=== PATIENT | female | born 1985 | race Caucasian/White ===

== ENCOUNTER 2021-06-22 11:12 | Emergency (ER) | payer BC, SELFPAY ==
--- NOTE | ~2021-06-22 | XR_ITS ---
XR ankle RT min 3V DATE: 06/22/2021 11:34 INDICATION: Volleyball injury last night; lateral pain. History of fracture. TECHNIQUE: 4 views COMPARISON: None FINDINGS: There is a small linear fracture through the lateral aspect of the lateral malleolus, with no significant displacement regulation. There is prominent overlying soft tissue swelling. There is a prominent os subfibular a old ununited fracture at the tip of the lateral malleolus. The medial malleolus and posterior malleolus are intact. Ankle mortise is maintained. Slight plantar calcaneal enthesopathy. IMPRESSION: Small linear fracture at the lateral aspect of the lateral malleolus with prominent overl kang soft tissue swelling Reviewed, dictated and finalized at location B. CLERK IMPRESSION: Small linear fracture at the lateral aspect of the lateral malleolu s with prominent overlying soft tissue swelling
[2021-06-22 11:26] VITALS: BP 109/63; PULSE 88; RESP 18; TEMP 36.6; O2SAT 99
[2021-06-22 11:34] VITALS: BP 109/63; PULSE 88; RESP 18; TEMP 36.6; O2SAT 99
--- NOTE | 2021-06-22 11:55 | ED.LOWEXIN ---
HPI - Extremity Injury (Lower) General Chief Complaint: Extremity Injury, Lower Stated Complaint: Rt Ankle Pain Source: patient and RN notes reviewed Mode of arrival: ambulatory History of Present Illness HPI Narrative: This is a 35-year-old female that presented to urgent care with right ankle pain and swelling. According to patient yesterday she was playing volleyball when her right ankle twisted and she heard a pop afterwards she experienced swelling and pain with weightbearing. Patient did R.I.C.E the site while at home with little improvement. Imaging today does indicate right ankle fracture. Related Data Home Medications Medication Instructions Recorded Confirmed lamotrigine 200 mg PO DAILY 06/22/21 06/22/21 levothyroxine 100 mcg PO DAILY 06/22/21 06/22/21 venlafaxine 150 mg PO BID 06/22/21 06/22/21 Allergies Allergy/AdvReac Type Severity Reaction Status Date / Time No Known Allergies Allergy Unverified 09/16/18 11:48 Review of Systems Review of Systems: A 14 organ system Review of Systems was performed and pertinent positives included in the HPI, otherwise remaining ROS is negative. Exam Narrative: GENERAL: This is a well-nourished, well-developed patient, in no apparent distress. HEAD: normocephalic, atraumatic. EYES: PERRL. Sclera clear/white. Vision is grossly intact. EARS: External ears normal, auditory canals clear and without drainage, TMs normal without perforation. Hearing grossly intact. NOSE: External nose normal with no obvious nasal discharge, nares without redness, no rhinorrhea. THROAT: Mucous membranes moist, posterior pharynx clear. NECK: Neck supple, non-tender without lymphadenopathy, masses or thyromegaly. CARDIOVASCULAR: Regular rate and rhythm without murmurs, gallops, or rubs. RESPIRATORY: Clear to auscultation. Breath sounds equal bilaterally. No wheezes, rales, or rhonchi. GASTROINTESTINAL: Abdomen soft, non-tender, nondistended. Bowel sounds are active. No hepato-splenomegaly, or palpable masses. No guarding. SKIN: warm, intact with no suspicious lesions or rash, good texture and turgor. NEURO: awake, alert, and oriented to person, place and time. There were no obvious focal neurologic abnormalities. Steady gait EXTREMITIES: Limited range of motion to the right ankle . 2+ edema. No calf tenderness. Negative Homans sign bilaterally. Pulses are palpable, capillary refill within normal limits sensation positive any affected extremity BACK: Nontender without deformity or crepitance. No flank tenderness. Course Course Emergency Course: Stirrup splint will be placed to the affected extremity and patient will discharge home with ibuprofen and instructed to follow-up with Ortho Level of Care: Express Care Visit Vital Signs Vital signs: Vital Signs Temperature 97.9 F 06/22/21 11:26 Pulse Rate 88 06/22/21 11:26 Respiratory Rate 18 06/22/21 11:26 Blood Pressure 109/63 06/22/21 11:26 Pulse Oximetry 99 06/22/21 11:26 Temperature 97.9 F 06/22/21 11:34 Pulse Rate 88 06/22/21 11:34 Respiratory Rate 18 06/22/21 11:34 Blood Pressure 109/63 06/22/21 11:34 Pulse Oximetry 99 06/22/21 11:34 Procedures Orthopedic Splinting/Casting Right ankle: Splinting/Casting Date: 06/22/21 Splinting/Casting Time: 12:00 Side: right Lower Extremity Injury Location: ankle Lower Extremity Immobilizer: stirrup splint Splint: prefabricated Pre-Procedure Neuro Vascular Exam: normal Post-Procedure Neuro Vascular Exam: normal MDM - Extremity Injury (Lower) Differential Diagnosis Differential diagnosis: Likely ankle sprain and strain and ankle fracture Imaging Data Attestation: I personally reviewed and interpreted this imaging study as follows: My impression: Right ankle fracture Radiologist's impression: Small linear fracture at the lateral aspect of the lateral malleolus with prominent overlying soft tissue swelling Discharge Plan
== END 2021-06-22 12:05 | disposition home or self-care (01) ==
PROVIDERS: Emergency Provider Nurse Practitioner
DX: S82.61XA Displaced fracture of lateral malleolus of right fibula, initial encounter for closed fracture (principal); X50.9XXA Other and unspecified overexertion or strenuous movements or postures, initial encounter; Y93.68 Activity, volleyball (beach) (court)
CPT/HCPCS: 29515; 73610; 99214; G0463

== ENCOUNTER 2022-07-15 13:10 | Emergency (ER) | payer BC, SELFPAY ==
--- NOTE | 2022-07-15 13:15 | ED.GENADULT ---
HPI - General Adult General Chief complaint: Upper Respiratory Infection Stated complaint: runny nose Time Seen by Provider: 07/15/22 13:15 Source: patient Mode of arrival: ambulatory Limitations: no limitations History of Present Illness HPI narrative: 36-year-old female patient presents to the [facility] with complaints of a runny nose and fatigue. Patient states she cared for her [id number] last week who did end up becoming up positive for strep. Patient denies any fevers body aches or chills. Patient states she has had some fatigue. Sunday she did have a scratchy throat that has since resolved. Denies any nausea, vomiting or diarrhea. Any abdominal pain or headaches. Related Data Home Medications Medication Instructions Recorded Confirmed lamotrigine 200 mg tablet 200 mg PO DAILY 06/22/21 07/25/21 levothyroxine 100 mcg tablet 100 mcg PO DAILY 06/22/21 07/25/21 venlafaxine 150 mg 150 mg PO BID 06/22/21 07/25/21 capsule,extended release 24 hr Allergies Allergy/AdvReac Type Severity Reaction Status Date / Time No Known Allergies Allergy Verified 07/15/22 13:30 Review of Systems Review of Systems: CONSTITUTIONAL: Denies fever, chills, or sweats. positive fatigue EYES: Denies visual changes, redness, or discharge. ENT: Positive rhinorrhea, congestion, sore throat, or otalgia. CARDIOVASCULAR: Denies chest pain, palpitations, or edema. RESPIRATORY: Denies cough or dyspnea. GASTROINTESTINAL: Denies abdominal pain, nausea, vomiting, or diarrhea. GENITOURINARY: Denies dysuria or hematuria. SKIN: Denies rash or itching. MUSCULOSKELETAL: Denies back pain, joint pain, or myalgia. NEUROLOGIC: Denies headache, numbness, or weakness. PSYCHIATRIC: Denies anxiety or depression. PMFSH Past Medical History Medical History Bipolar 1 disorder Depression Social History Social History Smoking status: Never smoker Comments At the time of my signature I agree with nursing past medical history, surgical, social, and family history. There is no relevant family history pertinent to the presenting complaint. Exam Narrative: GENERAL: Well-appearing, well-nourished, and in no acute distress. HEAD: Normocephalic, atraumatic. EYES: PERRLA and EOMI. ENT: Nares erythema and edema noted bilaterally, no rhinorrhea or epistaxis. Mucous membranes moist. posterior pharynx with no erythema, tonsillar enlargement, exudates or lesions present. Bilateral TMs are clear no erythema or foreign bodies the canal NECK: Supple. No lymphadenopathy CHEST: Clear to auscultation. No respiratory distress. HEART: Regular rate and rhythm. No murmur heard. Normal peripheral pulses. ABDOMEN: Soft, nontender, nondistended, normal active bowel sounds. EXTREMITIES: Normal range of motion. No edema. SKIN: Warm, dry, no rash. NEURO: No focal deficits. Alert and oriented x3. Course Course Level of Care: Express Care Visit Vital Signs Vital signs: Vital Signs Temperature 36.4 C 07/15/22 13:38 Pulse Rate 89 07/15/22 13:38 Respiratory Rate 18 07/15/22 13:38 Blood Pressure 99/74 L 07/15/22 13:38 Pulse Oximetry 100 07/15/22 13:38 Oxygen Delivery Room Air 07/15/22 13:38 Temperature 36.4 C 07/15/22 13:38 Pulse Rate 89 07/15/22 13:38 Respiratory Rate 18 07/15/22 13:38 Blood Pressure 99/74 L 07/15/22 13:38 Pulse Oximetry 100 07/15/22 13:38 Oxygen Delivery Room Air 07/15/22 13:38 Vital signs reviewed Medical Decision Making MDM Narrative Medical decision making narrative: Patient is negative for strep today. Informed patient that she take taking [id number] medications as needed for symptoms. We will send her strep swab to lab for a culture if it does come back positive at that time we will call her antibiotics. Differential Diagnosis Differential Diagnosis: differential diagnosis: A
[2022-07-15 13:38] VITALS: BP 99/74; PULSE 89; RESP 18; TEMP 36.4; O2SAT 100
== END 2022-07-15 13:52 | disposition home or self-care (01) ==
PROVIDERS: Emergency Provider Nurse Practitioner Family
DX: J34.89 Other specified disorders of nose and nasal sinuses (principal); F31.9 Bipolar disorder, unspecified
CPT/HCPCS: 87081; 87880; 99213; G0463

== ENCOUNTER 2022-09-08 12:32 | Emergency (ER) | payer BC, SELFPAY ==
[2022-09-08 12:43] VITALS: BP 111/67; PULSE 87; RESP 18; TEMP 36.7; O2SAT 100
--- NOTE | 2022-09-08 13:15 | ED.URI ---
HPI - URI/Sore Throat General Chief Complaint: Upper Respiratory Infection Stated Complaint: Congestion,Cough Time Seen by Provider: 09/08/22 12:51 Source: patient and RN notes reviewed Mode of arrival: ambulatory Limitations: no limitations History of Present Illness HPI Narrative: Patient presents today complaining of 4 day history of congestion, sore throat, cough, postnasal drip, headache. Symptoms have improved since onset. Denies fever. She has been taking Excedrin for symptoms. She is currently pain-free. She has been baby-sitting her niece who was subsequently diagnosed with strep throat 1 week ago. Related Data Home Medications Medication Instructions Recorded Confirmed lamotrigine 200 mg tablet 200 mg PO DAILY 06/22/21 09/08/22 levothyroxine 100 mcg tablet 100 mcg PO DAILY 06/22/21 09/08/22 venlafaxine 150 mg 150 mg PO BID 06/22/21 09/08/22 capsule,extended release 24 hr Allergies Allergy/AdvReac Type Severity Reaction Status Date / Time No Known Allergies Allergy Verified 09/08/22 12:35 Review of Systems Review of Systems: CONSTITUTIONAL: Denies body aches, fever, chills, or sweats. EYES: Denies visual changes, redness, or discharge. ENT: Denies rhinorrhea, or otalgia.+ sore throat, congestion, postnasal drip CARDIOVASCULAR: Denies chest pain, palpitations, or edema. RESPIRATORY: Denies dyspnea.+ cough GASTROINTESTINAL: Denies abdominal pain, nausea, vomiting, or diarrhea. GENITOURINARY: Denies dysuria or hematuria. SKIN: Denies rash, itching, or wounds. MUSCULOSKELETAL: Denies back pain, joint pain, or myalgia. NEUROLOGIC: Denies numbness, tingling, or weakness.+ headache PSYCH: Denies depression or anxiety. [facility] Past Medical History Medical History Bipolar 1 disorder Depression Social History Social History Smoking status: Never smoker Comments At time of signature, I have reviewed and agree with nursing past medical, surgical, social and family history unless otherwise noted. Please see nursing chart for further information. There is no relevant family history pertinent to the presenting complaint Exam Narrative: GENERAL: Well-appearing, well-nourished, and in no acute distress. HEAD: Normocephalic, atraumatic. EYES: EOMI. No redness or drainage. Conjunctivae normal. ENT: Mucous membranes pink and moist. Nares congested with rhinorrhea.. TMs normal bilaterally. Throat normal with moderate clear postnasal drainage. Uvula midline. NECK: Normal AROM. Supple. No lymphadenopathy. CHEST: No respiratory distress. Clear to auscultation. HEART: Regular rate and rhythm. No murmur appreciated. Normal peripheral pulses. EXTREMITIES: Normal range of motion. No edema. SKIN: Warm, dry, no rash. Capillary refill normal. Normal skin turgor. NEURO: No focal deficits. Alert and oriented x3. Gait steady. PSYCH: Normal affect. No signs of depression or anxiety. Course Course Level of Care: Express Care Visit Vital Signs Vital signs: Vital Signs Temperature 98.1 F 09/08/22 12:43 Pulse Rate 87 09/08/22 12:43 Respiratory Rate 18 09/08/22 12:43 Blood Pressure 111/67 09/08/22 12:43 Pulse Oximetry 100 09/08/22 12:43 Oxygen Delivery Room Air 09/08/22 12:43 Temperature 98.1 F 09/08/22 12:43 Pulse Rate 87 09/08/22 12:43 Respiratory Rate 18 09/08/22 12:43 Blood Pressure 111/67 09/08/22 12:43 Pulse Oximetry 100 09/08/22 12:43 Oxygen Delivery Room Air 09/08/22 12:43 Reviewed MDM - URI/Sore Throat MDM Narrative Medical decision making narrative: Rapid strep negative. COVID-19 negative. Symptoms likely related to a viral illness. Instructed to take [id number] medication. Prescription medications not indicated at this time. Anticipatory guidance given. Differential Diagnosis Differential diagnosis: Likely
== END 2022-09-08 13:23 | disposition home or self-care (01) ==
PROVIDERS: Emergency Provider Nurse Practitioner
DX: J06.9 Acute upper respiratory infection, unspecified (principal); Z20.822 Contact with and (suspected) exposure to COVID-19; F31.9 Bipolar disorder, unspecified
CPT/HCPCS: 87081; 87426; 87880; 99213; C9803; G0463

== ENCOUNTER 2023-08-03 12:05 | Emergency (ER) | payer BC, SELFPAY ==
--- NOTE | 2023-08-03 12:10 | ED.FEMALEGU ---
HPI - Female Genitourinary General Chief complaint: Urogenital-Female Stated complaint: uti symptoms Time Seen by Provider: 08/03/23 12:34 Source: patient, RN notes reviewed and old records reviewed Mode of arrival: ambulatory Limitations: no limitations History of Present Illness HPI Narrative: 37-year-old female presents to the [facility] with concerns for a UTI. Patient reports that yesterday felt like she had a catheter in. Reports seeing blood the tissue yesterday. Is due for her period any day now. Denies any new pain pain. Had a little urinary discomfort urinating when she gave sample. Denies fevers, nausea, vomiting. Patient denies any history of UTIs. Denies concerns for STDs. Onset (ago): day(s) (1) Related Data Home Medications Medication Instructions Recorded Confirmed lamotrigine 200 mg tablet 200 mg PO DAILY 06/22/21 09/08/22 levothyroxine 100 mcg tablet 112 mcg PO DAILY 06/22/21 09/08/22 venlafaxine 150 mg 300 mg PO BID 06/22/21 09/08/22 capsule,extended release 24 hr Allergies Allergy/AdvReac Type Severity Reaction Status Date / Time cortisone AdvReac Other Verified 08/03/23 12:23 Review of Systems Review of Systems: All systems reviewed & are unremarkable except as noted in HPI and below Constitutional: Constitutional: Reports no additional constitutional complaints Eyes: Eyes: Reports no additional eye complaints ENT: Reports system reviewed and no additional complaints, except as documented Cardiovascular: Cardiovascular: Reports no additional cardiovascular complaints, Denies chest pain and Denies dyspnea Respiratory: Respiratory: Reports no additional respiratory complaints, Denies chest congestion, Denies cough and Denies dyspnea Gastrointestinal: Gastrointestinal: Reports no additional gastrointestinal complaints, Denies abdominal pain, Denies nausea and Denies vomiting Genitourinary: Genitourinary: Reports as per HPI Musculoskeletal: Musculoskeletal: Reports no additional musculoskeletal complaints Integumentary/Breasts: Skin/Breast: Reports system reviewed and no additional complaints, except as docu Neurologic: Reports system reviewed and no additional complaints, except as documented Psychiatric: Psychiatric: Reports no additional psychiatric complaints Allergic/Immunologic: Allergic/Immunologic: Reports no additional allergic/immunologic complaints PMFSH Past Medical History Medical History Bipolar 1 disorder Depression Social History Social History Smoking status: Never smoker Comments At the time of my signature, I reviewed and agree with the nursing past medical, surgical, social, and family history. There is no relevant family history pertinent to the patient complaint. Exam Const: General: cooperative, healthy appearing, comfortable, no acute distress, well developed, alert and well nourished Nutritional Appearance: well nourished Orientation/consciousness: patient oriented x3 Limitations: no limitations HENMT: Head: normal to inspection Ears: hearing grossly normal bilaterally and external ears normal Face/Nose/Sinus: Normal external nose present, Normal nares present, Normal nasal mucous membranes and turbinates present, normal facial exam and face symmetric Face and sinus: normal facial exam and face symmetric Eyes: General: appearance normal, both eyes and all related structures Alignment and Position: alignment normal Periorbital: periorbital findings normal Pupils: Equal, round and reactive pupils present EOM: EOMs intact bilaterally Neck: Neck: normal visual inspection, full ROM, no lymphadenopathy and no meningeal signs Chest: Chest palpation & inspection: normal inspection of the chest Resp: Effort & Inspection: normal respiratory effort and able to speak in complete sentences Cardio: Rate: regular rate Rhythm: regular rhythm G
[2023-08-03 12:24] VITALS: BP 112/77; PULSE 92; RESP 18; TEMP 36.7; O2SAT 98
== END 2023-08-03 12:48 | disposition home or self-care (01) ==
PROVIDERS: Emergency Provider Nurse Practitioner
DX: R30.0 Dysuria (principal); F31.9 Bipolar disorder, unspecified
CPT/HCPCS: 81003; 87086; 99213; G0463

== ENCOUNTER 2023-10-02 11:42 | Outpatient (CLI) | payer BC, SELFPAY ==
--- NOTE | ~2023-10-02 | US_ITS ---
EXAMINATION: US thyroid DATE: 10/02/2023 11:59 INDICATION: Thyroid nodule. TECHNIQUE: Multiple ultrasound images of the thyroid were obtained. COMPARISON: None. FINDINGS: The right thyroid lobe measures 4.9 x 1.2 x 1.1 cm. The left thyroid lobe measures 4.1 x 0.9 x 1.2 c m. The isthmus measures 0.2 cm. There is normal echotexture and echogenicity throughout the thyroid g land. No discrete nodules identified. Normal vascular flow is present. IMPRESSION: Normal thyroid ultrasound findings. Reviewed, dictated and finalized at location K.
== END 2023-10-02 11:43 ==
LOC: MICIMG 11:44
PROVIDERS: PCP Internal Medicine; Visit Provider Internal Medicine
DX: E04.1 Nontoxic single thyroid nodule (principal)
CPT/HCPCS: 76536

== ENCOUNTER 2024-07-08 16:42 | Emergency (ER) | payer OTHER, SELFPAY ==
[2024-07-08 16:50] VITALS: BP 112/74; PULSE 89; RESP 18; TEMP 36.5; O2SAT 100
--- NOTE | 2024-07-08 16:59 | ED.GENADULT ---
HPI - General Adult General Chief complaint: Wound/Laceration Stated complaint: possible Tattoo infection LT Arm Source: patient Mode of arrival: ambulatory Limitations: no limitations History of Present Illness HPI narrative: 38-year-old female presented for complaint of redness and swelling surrounding a new tattoo. States she got the tattoo 3 days ago and has had irritation to the site since. She says they did not apply any ointment or bandage over the site after it was done. She showered and cleanse the site that evening and has applied aquaphor to the area. Denies any itching, drainage, streaking, nausea, vomiting or fever. Related Data Home Medications ?Medication ?Instructions ?Recorded ?Confirmed ?Last Taken ?Type lamotrigine 200 mg tablet 200 mg PO DAILY 06/22/21 09/08/22 Unknown History venlafaxine 150 mg 300 mg PO BID 06/22/21 09/08/22 Unknown History capsule,extended release 24 hr melatonin 3 mg capsule 3 mg PO QHS 08/29/23 Unknown History Allergies Allergy/AdvReac Type Severity Reaction Status Date / Time cortisone AdvReac Other Verified 07/08/24 17:00 Review of Systems Review of Systems: CONSTITUTIONAL: Denies body aches, fever, chills, or sweats. EYES: Denies visual changes, redness, or discharge. ENT: Denies rhinorrhea, congestion CARDIOVASCULAR: Denies chest pain, palpitations, or edema. RESPIRATORY: Denies cough or dyspnea. GASTROINTESTINAL: Denies abdominal pain, nausea, vomiting, or diarrhea. SKIN: Per HPI MUSCULOSKELETAL: Denies back pain, joint pain, or myalgia. NEUROLOGIC: Denies headache, numbness, tingling, or weakness. [facility] Past Medical History Medical History Bipolar 1 disorder Depression Surgical History Surgical History Hx of cholecystectomy Previous section x2 Family History Family History Mother Diabetes mellitus Hypertension Cerebrovascular accident Multiple sclerosis Grandparent Colorectal cancer Father Thyroid disorder Hypertension Social History Social History Smoking status: Former smoker Alcohol intake: current Substance use: never Comments At time of signature, I have reviewed and agree with nursing past medical, surgical, social and family history unless otherwise noted. Please see nursing chart for further information. There is no relevant family history pertinent to the presenting complaint Exam Narrative: GENERAL: Well-appearing EYES: conjunctivae clear, and EOMI. ENT: Mucous membranes moist. Oropharynx without edema, erythema or lesions. CHEST: Clear to auscultation. HEART: Regular rate and rhythm. SKIN: Warm, dry. Left forearm with 6cm circular area of light erythema and warmth surrounding a new tattoo, tenderness reported with palpation. NEURO: Alert and oriented x3. Course Course Emergency Course: Patient is aware of diagnosis, understands and agrees to treatment plan. Anticipatory guidance given. Patient agrees to follow-up as directed and is aware of reasons to seek care at the emergency department. Portions of this record may have been created with voice recognition software Level of Care: Express Care Visit Vital Signs Vital signs: Vital Signs Temperature 97.7 F 07/08/24 16:50 Pulse Rate 89 07/08/24 16:50 Respiratory Rate 18 07/08/24 16:50 Blood Pressure 112/74 07/08/24 16:50 Pulse Oximetry 100 07/08/24 16:50 Oxygen Delivery Room Air 07/08/24 16:50 Temperature 97.7 F 07/08/24 16:50 Pulse Rate 89 07/08/24 16:50 Respiratory Rate 18 07/08/24 16:50 Blood Pressure 112/74 07/08/24 16:50 Pulse Oximetry 100 07/08/24 16:50 Oxygen Delivery Room Air 07/08/24 16:50 Reviewed Medical Decision Making MDM Narrative Medical decision making narrative: Discussed physical exam findings. Advised supportive measures and signs/symptoms to go to the ER. Pt is appropriate for outpt treatment and f/u. Differential Diagnosis Differential Diagnosis: Allergic reaction, cellulitis, abrasion, avulsion, dermatitis Vital Signs Vital Signs: Vital Signs Temperature 97.7 F 07/08/24 16:50 Pulse Rate 89 07/08/24 16:50 Respiratory Rate 18 07/08/24 16:50 Blood Pressure 112/74 07/08/24 16:50 Pulse Oximetry 100 07/08/24 16:50 Oxygen Delivery Room Air 07/08/24 16:50 Temperature 97.7 F 07/08/24 16:50 Pulse Rate 89 07/08/24 16:50 Respiratory Rate 18 07/08/24 16:50 Blood Pressure 112/74 07/08/24 16:50 Pulse Oximetry 100 07/08/24 16:50 Oxygen Delivery Room Air 07/08/24 16:50 Discharge Plan Discharge Clinical Impression: Cellulitis Patient Disposition: Home, Self-Care Condition: Stable Instructions: Antibiotic Form, Cellulitis (ED) Additional Instructions: Keep the area clean and dry - cleanse with warm water and mild soap and allow to fully dry. apply ointment as directed to the site Take antibiotic as directed Watch for worsening symptoms including pain, redness, swelling, streaking, pus/drainage, fever. Go to the ER with any of these symptoms or concerns. Follow up with primary care provider in 1 week as needed. Patient Language: Indonesian Prescriptions: New cephalexin 500 mg capsule 500 mg PO Q8H 5 Days Qty: 15 0RF mupirocin 2 % ointment 1 applic topical BID 7 Days Qty: 22 0RF No Action lamotrigine 200 mg tablet 200 mg PO DAILY venlafaxine 150 mg capsule,extended release 24hr 300 mg PO BID melatonin 3 mg capsule 3 mg PO QHS levothyroxine 100 mcg tablet 112 mcg PO DAILY Qty: 90 0RF Follow-up/Referrals: PHYSICIAN,[employer]FOR[employer] DEVELOP[employer] PROGRAM DIRECTOR [Primary Care Provider] - Time of Disposition: 17:05
--- OUTSIDE RECORDS SUMMARY | 2024-07-08 18:23 | XMS_ITS | Patient Health Record ---
Author Organization [facility] Planning Address [address] [place] [address] 1 [address] [place] [address] Care Team Providers Care Accounting/Finance Tutor Name Role Phone Bhakti Leavitt Primary Care Provider Allergies Allergen (clinical drug ingredient) Drug/Non Drug Allergy documented on EMR Reaction Allergy Type Onset Date Status diphenhydramine Diphenhydramine Hcl Unknown Drug Allergy Active Reason For Referral No Information Medications Medication SIG (Take, Route, Frequency, Duration) Notes Start Date End Date Status Melatonin 1 MG 1 capsule at bedtime as needed with food Orally Once a day Active Divalproex Sodium ER 500 MG TAKE ONE TABLET BY MOUTH EVERY MORNING AND TAKE ONE TABLET EVERY EVENING Active Venlafaxine HCl ER 150 MG TAKE ONE CAPSULE BY MOUTH EVERY DAY Active traZODone HCl 50 MG take 1/2 tablet by oral route at bedtime may increase to 1 tab if needed for sleep Oral for 30 days ([facility]) 03/11/2014 Not-Taking Fish Oil 1000 MG 1 capsule Orally Onc e a day Not-Taking Problems Problem Type SNOMED Code ICD Code Onset Dates Problem Status W/U Status Risk Notes Problem [id number] Bipolar disorder, most recent episode depressed (F31.30) Active confirmed Plan Of Treatment No Information Insurance Providers Payer Name Payer Address Payer Phone Subscriber Number Group Number Insured Name Patient Relationship to Insured Coverage Start Date Coverage End Date [employer] PPO [address] [place], [place] [id number] Jane Frausto Self - patient is the insured 5 [employer] [address] [place], [place] [phone] [id number] Jane Frausto Self - patient is the insured 4 Medical (General) History Medical History History ICD Code OCD(2010) OCD(2010) Med_System: psychiatric; Disease: Anxiet y Med_System: psychiatric; Disease: Depres jb Med_System: immunologic; Disease: Allerg ies Surgical History Surgery Date(Month/Year) section 2010
--- OUTSIDE RECORDS SUMMARY | 2024-07-08 18:23 | XMS_ITS | Clinical Summary ---
Author Organization [facility] Address [address] [place] [address] Care Team Providers Care Passenger Car Cleaning Supervisor Name Role Phone Regan Núñez MD Primary Care Provider [phone] Allergies Active Allergy Reactions Criticality Noted Date Comments Corticosteroids Unknown 11/18/2019 Medications venlafaxine XR 150 MG 24 hr capsule Take 150 mg by mouth daily. Take 150 mg daily at 15:00 along with 75 mg daily at 15:00 to equal 225 mg daily Active lamoTRIgine (LAMICTAL) 100 MG tablet Take 2 tablets (200 mg total) by mouth daily. Active levothyroxine (SYNTHROID) 100 MCG tablet Take 120 mcg by mouth every morning. Active propranolol (INDERAL) 10 MG tablet Take 1 tablet (10 mg total) by mouth as needed. 03/16/2023 Active Active Problems Problem Noted Date Diagnosed Date Recurrent major depressive disorder, in remissio n 11/22/2023 Generalized anxiety disorder 11/22/2023 Hypothyroidism, unspecified type 11/22/2023 Obesity (BMI 30-39.9) 11/22/2023 Rectal itching 06/13/2023 Status post laparoscopic cholecystectomy 020 Resolved Problems Problem Noted Date Diagnosed Date Resolved Date Acute cholecystitis 11/09/2019 12/02/19 20 Family History Medical History Relation Comments Hypertension Father encephalitis Father Diabetes Mother Hypertension Mother Stroke Mother Relation Status Comments Father Mother Social History Tobacco Use Types Packs/Day Years Used Date Smoking Tobacco: Never Smokeless Tobacco: Never Alcohol Use Standard Drinks/Week Comments Not Currently 0 (1 standard drink = 0.6 oz pur e alcohol) occ. 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 Gender Identity Not on file Sexual Orientation Not on file Last Filed Vital Signs Vital Sign Reading Time Taken Comments Blood Pressure 108/72 11/22/2023 8:50 AM CDT Pulse 83 11/22/2023 8:50 AM CDT Temperature 36.3 C (97.4 F) 11/22/2023 8:50 AM CDT Respiratory Rate 20 11/22/2023 8:50 AM CDT Oxygen Saturation 98% 11/22/2023 8:50 AM CDT Inhaled Oxygen Concentration - - Weight 93.9 kg (207 lb) 11/22/2023 8:50 AM CDT Height 170.2 cm (5' 7 ) 11/22/2023 8:50 AM CDT Body Mass Index 32.42 11/22/2023 8:50 AM CDT Plan of Treatment Health Maintenance Due Date Last Done Comments Cervical Cancer Screening Pap Smear (Age 30 to 64) Every 3 Years 1983 Annual Physical 08/16/1986 Hepatitis C 08/16/2001 Hepatitis B Vaccines (1 of 3 - 19+ 3-dose series) 08/16/2002 Cervical Cancer Screening Pap with HPV Testing (Age 30 to 64) Every 5 Years 08/16/2013 COVID-19 Vaccine ( - season) 2024 Influenza Adult (#1) 2024 PHQ-2 (Physician Candor) 05/07/2024 Cervical Cancer Screening with HPV 11/21/2024 Postponed from 08/16/2013 (Going to Outside Clinic) DTaP, Tdap and Td Vaccines (1 - Tdap) 11/21/2024 02/02/1989, 06/05/1986, 03/06/1986, Additional history exists Postponed from 08/16/2002 (Patient Refused) Mammogram Screening 11/21/2024 04/08/2021 Postpone d from 2023 (Patient Refused) HPV Vaccines Aged Out No longer eligi ble based on patient's age to complete this topic Meningococcal B Vaccine Aged Out No l onger eligible based on patient's age to complete this topic Meningococcal Vaccine Aged Out No nick william eligible based on patient's age to complete this topic Pneumococcal Vaccine: Pediatrics (0 to 5 Years) and At-Risk Patients (6 to 64 Years) Aged Out No longer eligible based on patient's age to complete this topic RSV Immunizations Under 20 Months Aged Out No longer eligible based on patient's age to complete this topic Goals Goal Patient Goal Type Associated Problems Recent Progress Patient-Stated? Author Return to independent living [facility] No Patsy Garcia, INFORMATION SERVICES ASSISTANT Procedures Procedure Name Priority Date/Time Associated Diagnosis Comments MG SCREENING W ANNA NHAN DIGI Routine 04/08/2021 1:21 PM WALL TO WALL CARPET INSTALLER Encounter for screening mammogram for breast cancer from Last 3 Months or Most Recently Relevant to Health Maintenance Results * MG SCREENING W ANNA NHAN DIGI (04/08/2021 1:21 PM WALL TO WALL CARPET INSTALLER) Anatomical Region Laterality Modality Breast Bilateral Mammography 04/08/2021 3:30 PM WALL TO WALL CARPET INSTALLER Narrative 04/08/2021 3:30 PM WALL TO WALL CARPET INSTALLER EXAMINATION: MG SCREENING W ANNA NHAN DIGI WITH TOMOSYNTHESIS AND COMPUTER-AIDED DETECTION (CAD) DATE: 04/08/2021 12:47 PM CLINICAL HISTORY: Encounter for screening mammogram for breast cancer . Baseline exam COMPARISON STUDIES: No previous available. FINDINGS: Bilateral CC, MLO, 2-D and 3-D acquisitions. Scattered residual fibroglandular parenchyma . . No evidence of dominant mass, architectural distortion, skin thickening, nipple retraction or suspicious clusters of microcalcifications. Benign appearing calcifications noted. CONCLUSION: 1. BI-RADS Category 2 - benign findings. Annual screening mammography recommended. 2. BREAST TISSUE COMPOSITION: There are scattered areas of fibroglandular density. MQSA BI-RADS Categories: Category 0 - needs additional imaging evaluation. Category 1 - negative. Category 2 - benign findings. Category 3 - probably benign findings, but short interval follow-up is recommended. Category 4 - suspicious abnormality and biopsy should be considered though the lesion may well be benign. Category 5 - highly suggestive of malignancy and appropriate action should be taken. A) A negative report should not delay a biopsy if a dominant or clinically suspicious mass is present. B) Adenosis and dense breasts may obscure an underlying neoplasm. C) Study interpreted with computer aided detection. Voice recognition software utilized. Ordered By: MILLY LA Interpreted By: Jonnie Burden, 04/08/2021 3:30 PM Milly La MD MAMMO Final Result from Last 3 Months or Most Recently Relevant to Health Maintenance Insurance R Advance Directives * Full Code (Latest Code Status on File) Date Activated Date Inactivated Comments 11/09/2019 8:52 AM 11/12/2019 5:32 PM Care Teams Passenger Car Cleaning Supervisor Relationship Specialty Start Date End Date Regan Núñez [place] [address] [facility] [address] [place] [address] PCP - General INTERNAL MEDICINE 11/23/23
--- OUTSIDE RECORDS SUMMARY | 2024-07-08 18:23 | XMS_ITS | Data Portability ---
Author Organization [facility], Main Office Address [address] [facility] [address] [place] [address] Care Team Providers Care General Repairer Name Role Phone CARINE MILLAN Primary Care Provider Assessment No assessment recorded. Plan of Treatment Reminders Order Date Submit Date Provider Last Modified By Organization Details Last Modified Time Details Appointments None record ed. Lab None record ed. Referral None record ed. Procedures None record ed. Surgeries None record ed. Imaging None record ed. Medication Orders None record ed. Patient TargetsNo targets recorded. Patient Instructions Encounter Date Encounter Id Patient Instructions Last Modified By Organization Details Last Modified Time 06/10/2020 [id number] hemorrhoids: car e instructions Not available 06/10/2020 22:18:33 Patient counsele d to F/U immediately if temp. greater than 100.4, if is unable to urinate, increased rectal pain or any other concerns. Not available 06/10/2020 22:15:47 She will follow up in 1 - 2 weeks and I will treat both her RP and RA internal hemorrhoids. We will then wait 6 - 8 weeks and try to retreat all 3 areas. We may or may not do another treatment 6 - 8 weeks after that. On today's visit I spent a total of {{30 35 40* 45 50 55 60}} minutes prepping for her visit, [id number] with her and documenting. Not available 06/10/2020 22:16:49 07/09/2020 [id number] Patient counsele d to F/U immediately if temp. greater than 100.4, if is unable to urinate, increased rectal pain or any other concerns. Not available 08/18/2020 16:07:05 She will follow up in 6 - 8 weeks and I will try to retreat all 3 areas. We will probably only do the 3 treatments. Not available 08/18/2020 16:07:57 Reason for Referral None Reported. Problems Name Problem SNOMED Code Status Onset Date Resolution Date Notes Provider Name and Address Organization Details Recorded Time Roland easily reducible 541766867 Active 2020 Tx #1: 06/10/20 1.2 x 9 LL Tx #2: 07/09/20 1.2 x 5 RP and 1.2 x 3 RA Tx #3: Mariama Robles MD [address] [place] [address],[address] [place] [address], [phone], [facility] [place] 16:04:22 External hemorrhoids 35347552 Active 2020 Mraiama Robles MD [address] [place] [address],[address] [place] [address], [facility] [place] 22:11:21 Perianal dermatitis 867724176 Active 2020 Mariama Robles MD [address] [place] [address],[address] [place] [address] 5, [facility] [place] 22:11:34 Acquired hypothyroidism 911001651 Active 2020 Mariama Robles MD [address] [place] [address],[address] [place] [address], [phone], [facility] 22:13:48 Depressive disorder 31316874 Active 2020 Mariama Robles MD [address] [place] [address],[address] [place] [address] , [facility] [place] 22:15:20 Problem Notes None recorded. Procedures Surgical History Date Name Laterality Status Provider Name and Address Organization Details Recorded Time 07/10/19 IRC completed Mariama Robles MD [address] [place] [address],[address], [place], [address], [facility] 08/18/2020 16:04:10 06/10/19 21 IRC completed Mariama Robles MD [address] [place] [address],[address], [place], [address], [facility] 06/10/2020 22:10:47 11/05/19 20 cholecystectomy completed Mariama Robles MD [address] [place] [address],[address], [place], [address], [facility] [place] 06/10/2020 22:05:08 05/07/19 20 Date of Last Pap Smear completed Rocío Valverde [facility] 06/10/2020 15:29:05 12/06/19 11 section completed Mariama Robles MD [address] [place] [address],[address], [place], [address], [facility] 06/10/2020 22:05:50 05/07/19 10 Date of Last Mammogram completed Rocío Valverde [facility] 06/10/2020 15:29:02 Imaging Results None recorded. Procedure Notes None recorded. Medical Equipment None Reported. Allergies No known drug allergies Medications Name Sig Start Date Stop Date Status Note LastModified by Organization Details LastModified Time venlafaxine ER 75 mg capsule,exte nded release 24 hr TAKE 1 CAPSULE BY MOUTH EVERY DAY active Not Available Not Available No t Available hydrocodone 5 mg-acetamino phen 325 mg tablet TAKE 1 TABLET BY MOUTH EVERY 6 HOURS NEEDED FOR PAIN. 06/10 completed Not Available Not Available Not Available venlafaxine ER 150 mg capsule,exte nded release 24 hr TAKE 1 CAPSULE BY MOUTH EVERY DAY active Not Available Not Available No t Available metronidazol e 500 mg tablet TAKE 1 TABLET BY MOUTH EVERY 8 HOURS FOR 8 DAYS. 06/10 completed Not Available Not Available Not Available levofloxacin 250 mg tablet TAKE 2 TABLETS (500 MG TOTAL) BY MOUTH DAILY FOR 8 DAYS. 06/10 completed Not Available Not Available Not Available Synthroid 25 mcg tablet TAKE 1 TABLET BY MOUTH EVERY DAY IN THE MORNING 06/10 completed Not Available Not Available Not Available divalproex ER 500 mg tablet,exten ded release 24 hr TAKE 2 TABLETS BY MOUTH IN THE MORNING 06/10 completed Not Available Not Available Not Available Synthroid 75 mcg tablet TAKE 1 TABLET BY MOUTH EVERY DAY IN THE MORNING active Not Available Not Available No t Available Synthroid 50 mcg tablet TAKE 1 TABLET BY MOUTH EVERY DAY IN THE MORNING 06/10 completed Not Available Not Available Not Available metformin ER 500 mg tablet,exten ded release 24 hr TAKE 1 TABLET BY MOUTH TWICE A DAY WITH MEALS 06/10 completed Not Available Not Available Not Available divalproex ER 250 mg tablet,exten ded release 24 hr TAKE 1 TABLET BY MOUTH EVERY EVENING active Not Available Not Available No t Available Vitals Date Recorded Body temperature Provider Name a nd Address Organization Details Last Updated DateTime 06/10/2020 97.4 [degF] [facility] 06/10/2020 15:23:39 Date Recorded Body temperature Provider Name a nd Address Organization Details Last Updated DateTime 07/09/2020 97.4 [degF] oRcío Valverde [facility] 07/09/2020 14:33:06 Social History Question Answer Notes LastModified by Organizat ion Details LastModified Time Tobacco Smoking Status Never Smoker [facility] 06/10/2020 15:28:13 Do You Or Have You Ever Used E-cigarettes Or Vape? Never Used Electronic Cigarettes [email or web address] Information not available 06/10/2020 Alcohol Use Yes [email or web address] Information n ot available 06/10/2020 Alcohol Amount Occasional [email or web address] Informatio n not available 06/10/2020 Caffeine Use Yes [email or web address] Information not available 06/10/2020 Caffeine Type Coffee [email or web address] Information not available 06/10/2020 Caffeine Amount 1 Cup [email or web address] Information not available 06/10/2020 Illicit Drug Use No [email or web address] Information not available 06/10/2020 Do You Or Have You Ever Used Smokeless Tobacco? Never Used Smokeless Tobacco Information not available 06/10/2020 Sex: Female Functional Status None recorded. Mental Status None recorded. Family History Relationship Description Onset Age of this Age Resolved Age Notes LastModified by Organization Details LastModified Time Sister Malignant tumor of breast [email or web address] Not available 2020 15:26:49 Sister Hypertensive disorder [email or web address] Not available 2020 15:27:23 Father Polyp of colon [email or web address] Not available 2020 15:27:05 Father Hypertensive disorder Not available 2020 15:27:16 Mother Hypertensive disorder [email or web address] Not available 2020 15:27:19 Mother Cerebrovascu lar accident 65 [email or web address] Not available 08/2020 15:27:36 Mother Diabetes mellitus [email or web address] Not available 2020 15:27:43 Mother Multiple sclerosis 40 [email or web address] Not available 2020 15:27:53 Maternal Grandmother Malignant tumor of colon [email or web address] Not available 2020 15:28:07 Medical History Condition Response Coronary Artery Disease N Other Y Atrial Fibrillation N Kidney Stones N Hyperthyroidism N Hernia N COPD N Glaucoma N Hypothyroidism Y Depression Y Accidental Bowel Leakage N Headaches/Migraines N Deep Vein Thrombosis N Cardiac Dysrhythmia N Anxiety Disorder N MRSA/VRE Exposure N Genital Herpes N Diverticulosis N Cancer N Stroke N Head Trauma N Genital Warts N Crohn's Disease N Liver Disease/Hepatitis N HIV/AIDS N High Cholesterol N Irritable Bowel Syndrome N Autoimmune Disease Y Kidney Disease N Anemia N Arthritis/Gout N Celiac Disease N Anal/Rectal Trauma/Injury N Diabetes N Cataracts N Bleeding Disorder N Seizures/Epilepsy N Congestive Heart Failure (CHF) N Diverticulitis N Asthma N Heart Attack N Reflux/GERD N Ulcerative Colitis N Sleep Apnea N Aneurysm N Mitral Valve Prolapse N Heart Disease N Pulmonary Embolism N Hypertension N Colon/Rectal Polyps N Gynecological History Statement/Question Response Number of Pregnancies? 2 Tear or Laceration During Delivery? N Could You Be or Are You Currently Pregna nt? N Number of C-Sections? 2 Date of Last Mammogram 05/07/2009 Accidental Bowel Leakage Post Delivery? N Episiotomy During Delivery? N Date of Last Pap Smear 05/07/2019 Obstetrics History GPAL:G 0 P 0 0 0 0 Past Encounters Encounter ID Performer Location Encounter Start Date Encounter Closed Date Diagnosis/Indication Diagnosis SNOMED-CT Code Diagnosis ICD10 Code Diagnosis Note [id number] Mariama Robles MD Main Office [address] [facility] [address] [place] [address] 06/10/2020 14:59:26 06/10/2020 16:42:42 Pile easily reducible 879002076 K64.1 Stage 2 internal hemorrhoid s: I do think she would benefit from infrared coagulatio n and she wants to proceed. Full informed consent was given including risks/bene fits and alternativ es. All questions were answered. Her first IRC treatment was done today on her left lateral internal hemorrhoid . She of course needs to continue eating a high fiber diet and drinking plenty of water to maintain daily (to every other day) BM's that are soft (Conejos Scale type 4). External hemorrhoids 239 [address]805 K64.4 These will improve with IRC. She understand s the only way to directly treat external hemorrhoid s/skin tags would be with a surgical excision. She does not wish to pursue this and her hemorrhoid s are not bad enough to warrant surgery. Perianal dermatitis 7142 30803 L30.9 For now I want her to simply use Catherine' s Butt Paste with aloe with or without coconut oil. She needs to concentrat e on getting the paste in the gluteal cleft. She should consistent ly follow good skin care techniques . She needs to consistent ly use the baby wipes but then do not leave her skin wet. I advised she should not shave the peggy-anal hair. I recommende d she look into laser hair removal. Acquired hypothyroidism 002447591 E03.9 She is on replacemen t and states she is up to date with her blood work. Depressive disorder 5188 9007 F32.9 [id number] Mariama Robles MD Main Office [address] [facility] [address] [place] [address] 07/09/2020 14:31:56 07/09/2020 15:23:44 Pile easily reducible 681215915 K64.1 Stage 2 internal hemorrhoid s: She is doing well with infrared coagulatio n. Her 2nd treatment was done today on her RP and RA internal hemorrhoid s. She of course needs to continue eating a high fiber diet and drinking plenty of water to maintain daily (to every other day) BM's that are soft (Conejos Scale type 4). External hemorrhoids 239 04384 K64.4 These are improving with IRC. She understand s the only way to directly treat external hemorrhoid s/skin tags would be with a surgical excision. She does not wish to pursue this and her hemorrhoid s are not bad enough to warrant surgery. I advised she should try a product called Qleanse which can be purchased online for cleaning after BM's. Perianal dermatitis 6657 07020 L30.9 Her skin does look better and she states is doing better. She knows she can use the Catherine' s Butt Paste with aloe if needed. She should consider laser hair removal. Health Concerns Section Related Observation LastModified by Organization Detai ls LastModified Time None Recorded Concern Status LastModified by Organization Details LastModified Time None Recorded Advance Directives Directive None Recorded Payers Encounter Date Sequence Insurance Name Policy Number Policy Rothman Covered Member ID Rothman Member ID Guarantor Name 06/10/2020 1 [place] ARNOLD [id number] Chacorta Frausto [id number] Jane Frausto 07/09/2020 1 [id number] Chacortajohny Frausto [id number] Jane Frausto Notes Date Note Type Note Provider Name and Address Organization Details Recorded Time 06/10/2020 text/html This is a pleasa nt 34 year old woman who has had symptoms from her hemorrhoids starting with her first ( in 2006). They worsened in 2010 with her second (also a ). Her symptoms were still always intermittent. She worsened about 2 - 3 months ago and her symptoms have persisted much worse than is usual for her. She presents today for an evaluation and to discuss her treatment options. Bleeding: She rarely sees a tiny amount of BRB on the wipe with a BM. She has never had heavy bleeding or leakage of blood in between BM's. Pain: Not really Itching: She gets a lot of external itching and irritation. She feels this is worse when she has more external swelling. Discharge: It is always hard to get clean after BM's because of swelling and irritation. She uses Tucks pads but has not used baby wipes. She occasionally has some difficulty staying clean - she has to re-wipe shortly after a BM. She has never had drainage/leakage heavy enough that she has to wear a pad. Prolapse: Not that she feels or has to manually reduce. External swelling: She has had some external swelling since her pregnancies. She feels she has another swelling over the last 2 - 3 months. Discomfort: She has the external itching/irritation /discomfort. She denies internal symptoms of pressure, a sense of being blocked when trying to have a BM or a sense of incomplete emptying after BM's. Previous Hemorrhoid Treatment: She has used multiple OTC products but they have not been helpful. She has never had a prescription for or procedure on her hemorrhoids. Previous Lower GI Endoscopy: She has never had a colonoscopy. Bowel Habits: She has had long standing every 1 - 2 day BM's that are soft (Conejos Scale type 4). She consistently eats a high fiber diet and drinks plenty of water. She does not take a fiber supplement, stool softener or stimulant laxative. Mariama Robles MD [address] [place] [address],[address], [place], [address], [facility] 06/10/2020 22:18:36 07/09/2020 text/html She had no probl em with the first treatment and she is better. She has less swelling and irritation. She does continue using the Tucks wipes and it is still somewhat difficult to get clean after BM's. She has no needed to use any skin protectants. She has had no significant bleeding. Her BM's are always daily and soft. Mariama Robles MD [address] [place] [address],[address], [place], [address], [facility] 08/18/2020 16:09:10 OBGyn Episode No OBEpisode recorded.
== END 2024-07-08 17:16 | disposition home or self-care (01) ==
PROVIDERS: Emergency Provider Nurse Practitioner Family
DX: L03.114 Cellulitis of left upper limb (principal); Z87.891 Personal history of nicotine dependence; F31.9 Bipolar disorder, unspecified
CPT/HCPCS: 99213; G0463

== ENCOUNTER 2024-11-12 15:23 | Emergency (ER) | payer OTHER, SELFPAY ==
--- OUTSIDE RECORDS SUMMARY | 2024-11-12 15:25 | XMS_ITS | Clinical Summary ---
Author Organization [facility] Address [address] [place] [address] Care Team Providers Care Weigher Bulker Name Role Phone Regan Núñez MD Primary Care Provider [phone] Allergies Active Allergy Reactions Criticality Noted Date [...] Resolved Date Acute cholecystitis 11/09/2019 12/02/19 20 Encounters Date Type Department Care Team Description 10/22/2024 11:50 AM CDT - 10/22/2024 11:59 PM CDT Hospital Encounter [facility] [place] [address] [place] [address] Justino Yanes MD Discharge Disposition: Home or Self Care (Routine Discharge) 10/22/2024 Travel 08/25/2024 10:15 AM CDT - 08/25/2024 11:59 PM CDT Hospital Encounter [facility] [address] [place] [address] Justino Yanes MD Discharge Disposition: Home or Self Care (Routine Discharge) 08/25/2024 Orders Only [facility] [address] [place] [address] Justino Yanes MD 08/25/2024 Travel from Last 3 Months Family History Medical History Relation Comments Hypertension [...] on file Legal Sex Female 10:02 PM [employer] Gender Identity Not on file Sexual Orientation [...] 8:50 AM CDT Height 170.2 cm (5' 7) 11/22/2023 8:50 AM CDT Body Mass Index [...] Every 5 Years 08/16/2013 COVID-19 Vaccine ( season) 2024 PHQ-2 (Physician [place]) 05/07/2024 Cervical Cancer Screening with HPV 11/21/2024 [...] 5 Years) and At-Risk Patients (6 to 49 Years) Aged Out No longer eligible based on patient's age to complete this topic RSV Immunizations Under 20 Months Aged Out No longer eligible based on patient's age to complete this topic Goals Goal Patient Goal Type Associated Problems Recent Progress Patient-Stated? Author Return to independent [facility] No Patsy Garcia, ANALYST BUSINESS ANALYSIS Procedures Procedure Name Priority Date/Time Associated Diagnosis Comments MRI PITUITARY WWO CON Routine 10/22/2024 1:01 PM CDT Hypothyroid obesity Obesity Polycystic ovarian syndrome Nontoxic nodular goiter CORTISOL AM Routine 08/25/2024 10:26 AM CDT Hypothyroid Obesity, unspecified Polycystic ovaries Enlargement of thyroid DEXAMETHASONE SUPPRESSION TEST Routine 08/25/2024 10:26 AM CDT Hypothyroid Obesity, unspecified Polycystic ovaries Enlargement of thyroid PTH - INTACT Routine 08/25/2024 10:26 AM CDT Hypothyroid Obesity, unspecified Polycystic ovaries Enlargement of thyroid PHOSPHORUS, INORGANIC PHOSPHATE Routine 08/25/2024 10:26 AM CDT Hypothyroid Obesity, unspecified Polycystic ovaries Enlargement of thyroid THYROXINE, FREE (FT4) Routine 08/25/2024 10:26 AM CDT Hypothyroid Obesity, unspecified Polycystic ovaries Enlargement of thyroid CALCIUM, IONIZED Routine 08/25/2024 10:2 6 AM CDT Hypothyroid Obesity, unspecified Polycystic ovaries Enlargement of thyroid PROLACTIN Routine 08/25/2024 10:26 AM CDT Hypothyroid Obesity, unspecified Polycystic ovaries Enlargement of thyroid THYROID STIM HORMONE TSH Routine 08/25/2024 10:26 AM CDT Hypothyroid Obesity, unspecified Polycystic ovaries Enlargement of thyroid COMPREHENSIVE METABOLIC PANEL Routine 08/25/2024 10:26 AM CDT Hypothyroid Obesity, unspecified Polycystic ovaries Enlargement of thyroid MAGNESIUM Routine 08/25/2024 10:26 AM CDT Hypothyroid Obesity, unspecified Polycystic ovaries Enlargement of thyroid VITAMIN D, 25 OH Routine 08/25/2024 10:2 6 AM CDT Hypothyroid Obesity, unspecified Polycystic ovaries Enlargement of thyroid MG SCREENING W ANNA NHAN DIGI Routine 04/08/2021 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 No definite mass lesion or abnormal enhancement identified in the or pituitary or sellar region, considering technical constraints. Ordered By: JUSTINO YANES Interpreted By: Telly Godoy MD, 10/28/2024 4:35 PM Narrative 10/28/2024 4:38 PM CDT [facility] [address] [place] [address] DATE: 10/22/2024 11:57 AM INDICATION: Elevated cortisol. History of PCOS and Thuan's. EXAMINATION: MRI pituitary with and without contrast. TECHNIQUE: Multiplanar and multisequence MRI images of the pituitary were obtained before and after uneventful intravenous administration of 20 mL Dotarem COMPARISON: None FINDINGS: No definite mass lesion or abnormal enhancement identified in the pituitary or sellar region, though image quality is somewhat degraded by artifact. The infundibulum is midline. Normal T1 hyperintense neurohypophysis. No definite mass lesion or abnormal enhancement identified in the cavernous sinuses. No suprasellar mass or mass effect upon the optic apparatus. No intracranial mass effect or midline shift. Ventricles and extra-axial/subarachnoid spaces are unremarkable. No extra-axial collections. Proximal portions of the major intracranial arterial flow voids are patent. Craniocervical junction and pineal region are unremarkable. Mastoid air cells clear. Mucosal thickening in the paranasal sinuses. Visualized orbits unremarkable. Procedure Note Telly Godoy MD - 10/28/2024 [facility] [address] [place] [address] DATE: 10/22/2024 11:57 AM INDICATION: Elevated cortisol. History of PCOS and Thuan's. EXAMINATION: MRI pituitary with and without contrast. TECHNIQUE: Multiplanar and multisequence MRI images of the pituitary wereobtained before and after uneventful intravenous administration of 20 mLDotarem COMPARISON: None FINDINGS: No definite mass lesion or abnormal enhancement identified in thepituitary or sellar region, though image quality is somewhat degraded byartifact. The infundibulum is midline. Normal T1 hyperintenseneurohypophysis. No definite mass lesion or abnormal enhancementidentified in the cavernous sinuses. No suprasellar mass or mass effectupon the optic apparatus. No intracranial mass effect or midline shift.Ventricles and extra-axial/subarachnoid spaces are unremarkable. Noextra- axial collections. Proximal portions of the major intracranialarterial flow voids are patent. Craniocervical junction and pineal regionare unremarkable. Mastoid air cells clear. Mucosal thickening in theparanasal sinuses. Visualized orbits unremarkable. IMPRESSION: 1. No definite mass lesion or abnormal enhancement identified in the orpituitary or sellar region, considering technical constraints. Ordered By: JUSTINO YANES Interpreted By: Telly Godoy MD, 10/28/2024 4:35 PM Justino Yanes MD MRI Final Result * DEXAMETHASONE SUPPRESSION TEST (08/25/2024 10:26 AM CDT) CORTISOL 0.71 <5.1 MCG/DL 08/27/2024 6:48 AM CDT [facility] 08/25/2024 10:2 6 AM CDT Justino Yanes MD LABORATORY Final Result Performing Organization Address City/[facility]/ZIP Co de Phone Number [facility] [address] [place] [address], * (ABNORMAL) CORTISOL AM (08/25/2024 10:26 AM CDT) CORTISOL 8AM 0.8(L) 4.0 - 20.0 mcg/dL 08/25/2024 4:30 PM CDT [facility] 08/25/2024 10:2 6 AM CDT Justino Yanes MD LABORATORY Final Result [facility] [address] [place] [address], * PTH - INTACT (08/25/2024 10:26 AM CDT) PTH INTACT 34.0 18.4 - 80.1 PG/ML 08/25/2024 4:39 PM CDT [facility] 08/25/2024 10:2 6 AM CDT us Justino Yanes MD LABORATORY Final Result [facility] [address] [place] [address], [place] [phone] * COMPREHENSIVE METABOLIC PANEL (08/25/2024 10:26 AM CDT) [facility] GLUCOSE 95 70 - 99 MG/DL 08/25/2024 11:44 AM CDT [facility] BUN 12 7 - 18 MG/DL 08/25/2024 11:44 AM CDT [facility] CREATININE S/P/B 0.83 0.55 - 1.02 MG/DL 08/25/2024 11:44 AM CDT [facility] SODIUM S/P/B 137 136 - 145 MMOL/L 08/25/2024 11:44 AM CDT [facility] POTASSIUM S/P/B 4.6 3.5 - 5.1 MMOL/L 08/25/2024 11:44 AM T [facility] CHLORIDE S/P/B 102 100 - 108 MMOL/L 08/25/2024 11:44 AM CDT [facility] CO2 27.1 21 - 32 MMOL/L 08/25/2024 11:44 AM CDT [facility] CALCIUM S/P/B 9.4 8.5 - 10.1 MG/DL 08/25/2024 11:44 AM CDT [facility] BILIRUBIN TOTAL S/P/B 0.4 0.2 - 1.2 MG/DL 08/25/2024 11:44 AM CDT [facility] TOTAL PROTEIN S/P/B 8.0 6.4 - 8.2 G/DL 08/25/2024 11:44 AM CDT [facility] ALBUMIN S/P/B 4.1 3.4 - 5.0 G/DL 08/25/2024 11:44 AM T [facility] AST 27 15 - 37 U/L 08/25/2024 11:44 AM T [facility] ALT 39 14 - 55 U/L 08/25/2024 11:44 AM T [facility] ALKALINE PHOSPHATASE S/P/B 94 50 - 136 U/L 08/25/2024 11:44 AM T [facility] ANION GAP 7.9 5 - 15 MMOL/L 08/25/2024 11:44 AM T [facility] BUN CREATININE RATIO 14.5 6 - 26 08/25/2024 11:44 AM [facility] A/G RATIO 1.1 1.0 - 2.0 RATIO 08/25/2024 11:44 AM [facility] GFR ESTIMATE >90 >90 ML/MIN/1.7 3 M2 08/25/2024 11:44 AM T [facility] Comment: NOTE: eGFR is not calculated for patients <18 years of age. This is an estimated GFR calculation using the new CKD EPI creatinine equation without race and so does not require a correction factor for race. This estimated GFR should not be used for calculating drug doses. 08/25/2024 10:2 6 AM CDT us Justino Yanes MD LABORATORY Final Result [facility] [address] [place] [address], * (ABNORMAL) THYROXINE, FREE (FT4) (08/25/2024 10:26 AM CDT) FREE T4 0.72(L) 0.76 - 1.46 NG/DL 08/25/2024 11:44 AM CDT [facility] 08/25/2024 10:2 6 AM CDT Justino Yanes MD LABORATORY Final Result [facility] [address] [place] [address], [place] [phone] * THYROID STIM HORMONE TSH (08/25/2024 10:26 AM CDT) TSH 1.315 0.358 - 3.74 uIU/ML 08/25/2024 11:44 AM CDT [facility] Comment: HIGH DOSES OF BIOTIN MAY INTERFERE WITH THIS TEST RESULT. CORRELATION TO CLINICAL HISTORY AND PRESENTATION RECOMMENDED. 08/25/2024 10:2 6 AM CDT Justino Yanes MD LABORATORY Final Result Performing Organization Address City/[facility]/ZIP Co de Phone Number [facility] [address] [place] [address], [place] [phone] * PHOSPHORUS, INORGANIC PHOSPHATE (08/25/2024 10:26 AM CDT) PHOSPHORUS 3.5 2.5 - 4.9 MG/DL 08/25/2024 11:44 AM CDT [facility] 08/25/2024 10:2 6 AM CDT Justino Yanes MD LABORATORY Final Result [facility] [address] [place] [address], [place] [phone] * VITAMIN D, 25 OH (08/25/2024 10:26 AM CDT) VITAMIN D 25 HYDROXY S/P/B 34 30 - 100 NG/ML 08/25/2024 11:32 AM CDT [facility] Comment: INTERPRETATION DEFICIENT <20 INSUFFICIENT 20-29 SUFFICIENT 30-100 08/25/2024 10:2 6 AM CDT Justino Yanes MD LABORATORY Final Result [facility] [address] [place] [address], [place] [phone] * MAGNESIUM (08/25/2024 10:26 AM CDT) [facility] MAGNESIUM 2.3 1.8 - 2.4 MG/DL 08/25/2024 11:44 AM CDT [facility] 08/25/2024 10:2 6 AM CDT Justino Yanes MD LABORATORY Final Result Performing Organization Address City/[facility]/ZIP Co de Phone Number [facility] [address] [place] [address], [place] [phone] * PROLACTIN (08/25/2024 10:26 AM CDT) Pathologist [facility] PROLACTIN 14.2 NG/ML 08/26/2024 9:33 PM CDT [facility] Comment:FEMALE REFERENCE RAN GE (NON-): 4.8-23.3 08/25/2024 10:2 6 AM CDT Justino Yanes MD LABORATORY Final Result Performing Organization Address City/[facility]/ZIP Co de Phone Number [facility] [address] [place] [address], [place] [phone] * CALCIUM, IONIZED (08/25/2024 10:26 AM CDT) CALCIUM IONIZED 5.1 4.7 - 5.5 mg/dL 08/27/2024 6:29 PM CDT Personal JULIAN MOLINA Comment: Test Performed by Leana Merida, [email or web address], [address] [place], [place] Alex Moura M.D., Ph.D., Director of Laboratories , [place] [id number] 08/25/2024 10:2 6 AM CDT us Justino Yanes MD LABORATORY Final Result [facility] [address] [place], [place] , [place] [phone] * MG SCREENING W ANNA NHAN DIGI (04/08/2021 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) Anatomical Region Laterality Modality Breast Bilateral Mammography 04/08/2021 3:30 PM SWAT TEAM MEMBER Narrative 04/08/2021 3:30 PM SWAT TEAM MEMBER EXAMINATION: MG SCREENING W ANNA NHAN DIGI [...] Interpreted By: Jonnie Burden, 04/08/2021 3:30 PM us Milly La MD MAMMO Final Result from Last 3 Months or Most Recently Relevant to Health Maintenance Insurance Advance Directives * Full Code (Latest Code Status on File) Date Activated Date Inactivated Comments 11/09/2019 8:52 AM 11/12/2019 5:32 PM Care Teams Weigher Bulker Relationship Specialty Start Date End Date Regan Núñez [place] [address] [facility] [address] [place] [address] PCP - General INTERNAL MEDICINE 11/23/23
--- OUTSIDE RECORDS SUMMARY | 2024-11-12 15:25 | XMS_ITS | Patient Health Record ---
Author Organization [facility] Address [address] [facility] [address] [place] [address] Care Team Providers Care Flour Inspector Name Role Phone Bhakti Leavitt Primary Care Provider [phone] Allergies Allergen (clinical drug ingredient) Drug/Non Drug [...] to 1 tab if needed for sleep Oral; Duration: 30 days ([facility]) 03/11/2014 Not-Taking Fish Oil 1000 MG 1 capsule Orally Onc e a day Not-Taking Problems Problem Type SNOMED Code ICD Code Onset Dates Problem Status W/U Status Risk Notes Problem Depressed bipolar I disorder (70080922) Bipolar disorder, most recent episode depressed (F31.30) Active confirmed Plan Of Treatment No Information Insurance Providers Payer Name Payer Address Payer Phone Subscriber Number Group Number Insured Name Patient Relationship to Insured Coverage Start Date Coverage End Date [employer] PPO [address] [place], [place] [id number] Jane Frausto Self - patient is the insured 5 [employer] [address] [place], [place] [phone] [id number] Jane Frausto Self - patient is the insured 4 Medical (General) History Medical History History ICD Code OCD(2010) OCD(2010) Med_System: psychiatric; Disease: Anxiet y Med_System: psychiatric; Disease: Depres jb Med_System: immunologic; Disease: Allerg ies Surgical History Surgery Date(Month/Year) section 2010
[2024-11-12 15:28] VITALS: BP 109/77; PULSE 89; RESP 16; TEMP 36.3; O2SAT 100
--- NOTE | 2024-11-12 15:31 | ED.HA ---
HPI - Headache General Chief Complaint: Headache Stated Complaint: Headache Time Seen by Provider: 11/12/24 15:40 Source: patient Mode of arrival: ambulatory Limitations: no limitations History of Present Illness HPI Narrative: Jane is a 39 year old male patient presenting to the clinic today with complaints of had a tension headache. She reports has been going on for 3 days. States she is having some associated nausea and photosensitivity. Has been getting headaches more frequently over the last couple months. Has taken Excedrin migraine and ibuprofen for her symptoms. Just had a MRI of her pituitary on 10/22/2024 completed and that was normal. History of bi-polar, Thuan's, and PCOS. Denies any visual changes, dizziness, chest pain, or shortness of breath. States she has had COVID before and had these type of headaches when she had COVID. Did not test herself for COVID. Rates pain 7/10 over the frontal headache and episcopal lobe with pressure Related Data Home Medications ?Medication ?Instructions ?Recorded ?Confirmed ?Last Taken ?Type venlafaxine 150 mg 300 mg PO BID 06/22/21 09/08/22 Unknown History capsule,extended release 24 hr melatonin 3 mg capsule 3 mg PO QHS 08/29/23 Unknown History eszopiclone 1 mg tablet (Lunesta) 1 mg PO QHS 08/12/24 Unknown History lamotrigine 200 mg tablet 200 mg PO DAILY 08/12/24 Unknown History Allergies Allergy/AdvReac Type Severity Reaction Status Date / Time cortisone AdvReac Other Verified 11/12/24 15:37 Review of Systems Review of Systems: Pertinent positives per HPI. Patient denies any fever, chills, rash, headache, visual changes, dizziness, cough, shortness of breath, chest pain, palpitations, nausea, vomiting, diarrhea, constipation, abdominal pain, or any urinary issues. [facility] Past Medical History Medical History Depression Bipolar 1 disorder Surgical History Surgical History Previous section x2 Hx of cholecystectomy Family History Family History Mother Diabetes mellitus Hypertension Cerebrovascular accident Multiple sclerosis Grandparent Colorectal cancer Father Thyroid disorder Hypertension Social History Social History Smoking status: Former smoker Alcohol intake: current Substance use: never Comments At the time of my signature, I reviewed and agree with the nursing past medical, surgical, social, and family history. There is no relevant family history pertinent to the patient complaint. Exam Narrative: General: Well-developed, obese, in no apparent distress Head: Normocephalic, atraumatic Eyes: Pupils equally round and reactive to light bilaterally, EOM intact, sclera and conjunctive clear, no discharge, lids normal Ears: TMs intact and clear, ear canals clear, no drainage, grossly hearing normal. Nose: Nares patent, no discharge, no inflammation, no sinus tenderness. Mouth: Oropharynx without lesions or masses, good dentition, MMM. Tongue midline, even rise and fall of uvula Neck: Supple, trachea midline, no enlargement of anterior or posterior cervical nodes, no thyroid masses or goiter palpable. Cardio: Regular rate and rhythm, s1 and s2 normal, no murmur appreciated. Resp: Clear to auscultation bilaterally anteriorly and posteriorly, no rhonchi, rales, wheezing or rubs Musculoskeletal: No deformity, non-tender to palpation, grossly normal range of motion, muscle strength strong and equal, peripheral pulse strong, no edema, no cyanosis, normal gait and station Neuro: Alert and oriented x4 with normal speech, no focal deficits, cranial nerves I through XII intact, muscle strength 5 out of 5, sensation intact bilaterally, negative Romberg test Course Course Emergency Course: Portions of this record may have been created with voice recognition software. Level of Care: Express Care Visit Vital Signs Vital signs: Vital Signs Temperature 36.3 C L 11/12/24 15:28 Pulse Rate 89 11/12/24 15:28 Respiratory Rate 16 11/12/24 15:28 Blood Pressure 109/77 11/12/24 15:28 Pulse Oximetry 100 11/12/24 15:28 Oxygen Delivery Room Air 11/12/24 15:28 Temperature 36.3 C L 11/12/24 15:28 Pulse Rate 89 11/12/24 15:28 Respiratory Rate 16 11/12/24 15:28 Blood Pressure 109/77 11/12/24 15:28 Pulse Oximetry 100 11/12/24 15:28 Oxygen Delivery Room Air 11/12/24 15:28 Vital signs reviewed MDM - Headache MDM Narrative Medical decision making narrative: At the time of visit patient is resting comfortably on the exam table. Patient appears to be nontoxic. Patient has acute headache. Does have some associated nausea and photosensitivity. Neuro exam is negative in the clinic today. No history of migraine headaches. No auras. No fever or URI symptoms. No neck pain. Has taken Excedrin migraine and ibuprofen without much relief over the past 3 days. Rates her pain currently a 7/10. Ordered Toradol 60 mg and Zofran 8 mg ODT for headache/nausea. Medications:Toradol 60mg IM and Ondansetron 8mg ODT. Plan: I suspect patient has acute tension headache. Patient's pain down to 3/10 after medications. Neuro exam is negative. Supportive measures were discussed with the patient and they voiced understanding discharge instructions and agrees to treatment plan. Return precautions reviewed Differential Diagnosis Differential diagnosis: Likely migraine, tension headache, subarachnoid hemorrhage, headache, meningitis and sinusitis Lab Data Labs: Lab Results 11/12/24 Range/Units 16:03 POC SARS CoV-2 Ag Negative (Negative) Discharge Plan Discharge Clinical Impression: Acute tension headache Qualifiers: Intractability: not intractable Qualified Code(s): G44.209 - Tension-type headache, unspecified, not intractable Patient Disposition: Home Condition: Stable Instructions: Antibiotic Form, Acute Headache (ED) Additional Instructions: COVID testing was negative in the clinic today. Neuro exam is negative in the clinic today Toradol 60 mg IM and Zofran 8 mg ODT given in the clinic today Recommend taking Benadryl when you get home Increase fluids and stay well hydrated Rest in a cool dark place Continue Tylenol/Motrin as needed for headache or may continue using Excedrin migraine Go to the ER if you develop worsening headache, dizziness, weakness, lethargy, confusion, visual changes, shortness of breath, or chest pain Follow-up with your primary care doctor in 2-3 days if symptoms persist or go the emergency room if symptoms worsen Patient Language: Swedish Prescriptions: No Action venlafaxine 150 mg capsule,extended release 24hr 300 mg PO BID lamotrigine 200 mg tablet 200 mg PO DAILY Rx Instructions: Takes 150mg/day melatonin 3 mg capsule 3 mg PO QHS eszopiclone [Lunesta] 1 mg tablet 1 mg PO QHS levothyroxine [Levo-T] 112 mcg tablet 112 mcg PO DAILY Qty: 90 2RF Follow-up/Referrals: Justino Avila MD [Primary Care Provider] - Time of Disposition: 16:14 Quality NIHSS Nursing Documentation ED NIHSS nursing documentation: reviewed/agree
[2024-11-12] MEDS: ONDANSETRON HCL ODT 4 MG TABLET 8 MG SUBLINGUAL (15:50)
[2024-11-12] MEDS: KETOROLAC (*BKC) 60 MG/2 ML VIAL IM (15:52)
[2024-11-12 16:07] LABS: EDCOVIDSCREEN Negative (Negative)
== END 2024-11-12 16:20 | disposition home or self-care (01) ==
PROVIDERS: Emergency Provider Nurse Practitioner Family; PCP Internal Medicine
DX: G44.209 Tension-type headache, unspecified, not intractable (principal); Z20.822 Contact with and (suspected) exposure to COVID-19; Z87.891 Personal history of nicotine dependence; E06.3 Autoimmune thyroiditis; F31.9 Bipolar disorder, unspecified; E28.2 Polycystic ovarian syndrome
CPT/HCPCS: 87426; 96372; 99213; A9270; G0463; J1885